=== PATIENT | female | born 1960 | race Two or more races ===

== ENCOUNTER 2019-07-30 08:16 | Emergency (ER) | payer SELFPAY ==
[~2019-07-30] VITALS: Ht 165.1 cm; Wt 65.0 kg
[2019-07-30] MEDS ORDERED: KETOROLAC 30MG/ML VIAL IM ONE (10:15)
[2019-07-30 11:44] VITALS: BP 122/78
== END 2019-07-30 11:47 | disposition home or self-care (01) ==
LOC: ER 08:16
DX: M25.461 Effusion, right knee (principal); M25.561 Pain in right knee
CPT/HCPCS: 73562; 96372; 99283; J1885; L1830